=== PATIENT | male | born 1980 | race Asian ===

== ENCOUNTER 2016-09-20 12:43 | Inpatient (IN) | payer MEDICAID ==
[~2016-09-20] VITALS: Ht 175.3 cm; Wt 86.5 kg
[2016-09-20] MEDS ORDERED: CEFTRIAXONE 1 GM/50 ML (PMX) 50 ML IVPB STA (13:04)
[2016-09-20] MEDS ORDERED: AZITHROMYCIN 500MG/NS (PMX) 250 ML IV STA (13:04)
[2016-09-20] MEDS ORDERED: SODIUM CHLORIDE 0.9% 1L BAG IV* STA (13:04)
[2016-09-20] MEDS ORDERED: ALBUTEROL 0.083% (NEB) 2.5 MG/3 ML AMP NEB STA (13:17)
[2016-09-20] MEDS ORDERED: DEXAMETHASONE 10 MG/ML 1 ML INJ IV ONE (13:30)
[2016-09-20 13:48] LABS: BASOPHIL # 0.1 10^3/ul (0.0-0.1); BASOPHILS % 0.5 % (0.0-2.0); EOSINOPHILS # 0.1 10^3/ul (0.0-0.5); EOSINOPHILS % 0.5 % (0.0-7.0); HEMATOCRIT 46.6 % (42.0-52.0); HEMOGLOBIN 15.8 g/dl (14.0-18.0); LYMPHOCYTES # 1.9 10^3/ul (0.8-2.9); LYMPHOCYTES % 12.5 % (15.0-51.0); MEAN CORPUSCULAR HEMOGLOBIN 30.9 pg (29.0-33.0); MEAN CORPUSCULAR HGB CONC 33.9 g/dl (32.0-37.0); MEAN CORPUSCULAR VOLUME 91.2 fl (82.0-101.0); MEAN PLATELET VOLUME 9.1 fl (7.4-10.4); MONOCYTE # 1.2 10^3/ul (0.3-0.9); MONOCYTES % 7.8 % (0.0-11.0); NEUTROPHILS % 77.4 % (39.0-77.0); PLATELET COUNT 521 10^3/UL (140-415); RED BLOOD COUNT 5.11 10^6/ul (4.70-6.10); RED CELL DISTRIBUTION WIDTH 11.9 % (11.5-14.5); WHITE BLOOD COUNT 14.9 10^3/ul (4.8-10.8)
--- NOTE | 2016-09-20 13:52 | RADRPT ---
PROCEDURE: Chest x-ray CLINICAL INDICATION: Shortness of breath TECHNIQUE: Chest single view COMPARISON: None FINDINGS: The heart is normal in size. The pulmonary vessels are normal in caliber. There is a evolving left lower lobe pneumonia. Right lung clear. Costophrenic angles sharp. Bony thorax is unremarkable. IMPRESSION: Evolving left lower lobe pneumonia RPTAT: HH .Eleazar Shannon MD, Date Time Electronically viewed and signed by .Eleazar Shannon MD, on 09/20/2016 13:51 .W/
[2016-09-20 14:08] LABS: ALBUMIN 4.5 g/dl (3.3-4.9); BILIRUBIN,INDIRECT 0.4 mg/dl (0-1.1); BILIRUBIN,TOTAL 0.4 mg/dl (0.2-1.3); CALCIUM 10.8 mg/dl (8.4-10.2); CREATININE 0.94 mg/dl (0.61-1.24); POTASSIUM 3.9 mmol/L (3.5-5.1)
--- NOTE | 2016-09-20 14:38 | ERD ---
ER Documentation Chief Complaint Date/Time DATE: 09/20/16 TIME: 14:28 Chief Complaint Pt with fever, SOB, body aches X 13 day. HPI 36-year-old previously healthy male presenting with symptoms of body aches for 2 weeks. He initially had a fever that has since resolved. However his cough is not getting any better and he feels short of breath. He lost his voice a few days ago but this is improving. He denies any chest pain, abdominal pain, nausea, vomiting, diarrhea. No weight loss or night sweats. No history of pulmonary disease. He also complains of decreased vision in his left eye for the past 2 months. He denies any preceding trauma. He has not been seen for this yet. ROS All systems reviewed and are negative except as per history of present illness. Medications Home Meds Active Scripts Ibuprofen* (Motrin*) 600 Mg Tab, 600 MG PO Q6H Y for PAIN AND OR ELEVATED TEMP, #30 TAB Prov:GRICELDA IBRAHIM MD 09/20/16 Azithromycin* (Zithromax*) 250 Mg Tablet, 250 MG PO DAILY for 4 Days, TAB start 09/21/16 Prov:GRICELDA IBRAHIM MD 09/20/16 PMhx/Soc History of Surgery: No Anesthesia Reaction: No Hx Neurological Disorder: No Hx Respiratory Disorders: No Hx Cardiac Disorders: No Hx Psychiatric Problems: No Hx Miscellaneous Medical Probl: No Hx Alcohol Use: Yes (Rare) Hx Substance Use: No Hx Tobacco Use: No Smoking Status: Never smoker FmHx Family History: other (High blood pressure- parents) Physical Exam Vitals Vital Signs Date Time Temp Pulse Resp B/P Pulse Ox O2 Delivery O2 Flow Rate FiO2 09/20/16 13:57 112 22 92 21 09/20/16 13:41 0 09/20/16 12:48 98.6 128 18 214/104 90 Physical Exam Const: Nontoxic, well-appearing, no distress Head: Atraumatic Eyes: Normal Conjunctiva, PERRLA, EOMI. No proptosis. Right eye funduscopic exam limited but grossly normal. Left eye funduscopic exam limited but unable to visualize retina. There is a greenish discoloration and security when I try to do the exam. No photophobia. Only light perception and shadows seen with left eye. OD 20/50, OU 20/50. IOP OS 33, OD 24 ENT: Normal External Ears, Nose and Mouth. Posterior oropharynx normal. Hoarse voice. No drooling. No stridor. Neck: Full range of motion..~ No meningismus. No cervical lymphadenopathy Resp: Clear to auscultation bilaterally with transmitted upper airway sounds , no rales or rhonchi Cardio: Tachycardic with regular rhythm, no murmurs. 2+ distal pulses Abd: Soft, non tender, non distended. No hepatosplenomegaly. Normal bowel sounds Skin: No petechiae or rashes Back: No midline or flank tenderness Ext: No cyanosis, or edema Neur: Awake and alert and oriented 3, cranial nerves intact, strength and sensations intact in all 4 extremities Psych: Normal Mood and Affect Result Diagram: 09/20/16 1315 09/20/16 1315 Results 24 hrs Laboratory Tests Test 09/20/16 13:15 White Blood Count 14.910^3/ul Red Blood Count 5.1110^6/ul Hemoglobin 15.8g/dl Hematocrit 46.6% Mean Corpuscular Volume 91.2fl Mean Corpuscular Hemoglobin 30.9pg Mean Corpuscular Hemoglobin Concent 33.9g/dl Red Cell Distribution Width 11.9% Platelet Count 97769^3/UL Mean Platelet Volume 9.1fl Neutrophils % 77.4% Lymphocytes % 12.5% Monocytes % 7.8% Eosinophils % 0.5% Basophils % 0.5% Nucleated Red Blood Cells % 0.0/100WBC Neutrophils # (Manual) 11.510^3/ul Lymphocytes # 1.910^3/ul Monocytes # 1.210^3/ul Eosinophils # 0.110^3/ul Basophils # 0.110^3/ul Nucleated Red Blood Cells # 0.010^3/ul Sodium Level 141mmol/L Potassium Level 3.9mmol/L Chloride Level 96mmol/L Carbon Dioxide Level 27mmol/L Anion Gap 22 Blood Urea Nitrogen 10mg/dl Creatinine 0.94mg/dl Glucose Level 123mg/dl Calcium Level 10.8mg/dl Total Bilirubin 0.4mg/dl Direct Bilirubin 0.00mg/dl Indirect Bilirubin 0.4mg/dl Aspartate Amino Transf (AST/SGOT) 63IU/L Alanine Aminotransferase (ALT/SGPT) 125IU/L Alkaline Phosphatase 123IU/L Total Protein 9.0g/dl Albumin 4.5g/dl Globulin 4.50g/dl Albumin/Globulin Ratio 1.00 Current Medications Medications (Trade) Dose Ordered Sig/Laura Route PRN Reason Start Time Stop Time Status Last Admin Dose Admin Sodium Chloride 2680 ml 2,680 ml BOLUS OVER 2 HOURS STAT IV* 09/20/16 13:04 09/20/16 13:05 DC 09/20/16 13:49 Ceftriaxone Sodium 50 ml @ 100 mls/hr ONCE STAT IVPB 09/20/16 13:04 09/20/16 13:17 DC Azithromycin (Zithromax 500mg/ NS (Pmx)) 250 ml @ 250 mls/hr ONCE STAT IV 09/20/16 13:04 09/20/16 14:03 DC 09/20/16 13:04 Albuterol (Proventil 0.083% (Neb)) 5 mg ONCE STAT NEB 09/20/16 13:17 09/20/16 13:18 DC 09/20/16 13:52 Dexamethasone (Decadron) 10 mg ONCE ONCE IV 09/20/16 13:30 09/20/16 13:31 DC 09/20/16 14:03 Tetracaine HCl (Tetracaine 0.5% Steri-Unit Saranya) 1 drop ONCE ONCE LEFT EYE 09/20/16 15:00 09/20/16 15:01 09/20/16 14:39 Procedures/MDM Labs CBC: Leukocytosis, thrombocytosis CMP: No evidence of electrolyte abnormality, renal failure, hypoglycemia. mild transaminitis Chest x-ray: Left lower lobe pneumonia [facility] Patient is presenting with flulike symptoms. His blood pressure was noted to be very high when he came in, but this improved without intervention. Repeat blood pressure was 168/117. I have a low suspicion for hypertensive emergency. His workup is consistent with community-acquired pneumonia. IV fluids, IV antibiotics were started. Patient was given a breathing treatment without any significant improvement in his symptoms. His vitals were notable for mild hypoxia on room air to the low 90s, however the patient seems comfortable on exam. I think the patient is appropriate for outpatient treatment of his pneumonia with azithromycin. 1 dose was given here. I have a lower suspicion for acute coronary syndrome, heart failure, or pulmonary embolism. With regard to his transaminitis, there does not seem to be any evidence of acute cholecystitis, acute hepatitis, or biliary obstruction. I discussed these findings with the patient and recommended follow-up for this as well as his hypertension. With regard to his left eye partial vision loss, I suspect the patient likely had a vitreous hemorrhage versus retinal detachment. However this is not an emergency as this is been going on for 2 months. I have a lower suspicion for glaucoma. I told the patient he absolutely does need to see ophthalmology and recommended he go to [facility]. Patient understands the discharge plan. He will be discharged after his IV fluids and IV antibiotics are done. Patient signed out to the oncoming ED physician. Departure Diagnosis: Primary Impression: Community acquired pneumonia Additional Impressions: Transaminitis Blurry vision, left eye Condition: Fair GRICELDA IBRAHIM MD Sep 20, 2016 14:38
[2016-09-20] MEDS ORDERED: AZIT250T94 PO (14:48)
[2016-09-20] MEDS ORDERED: IBUP-1542 PO (14:48)
[2016-09-20] MEDS ORDERED: TETRACAINE 0.5% 4 ML OPH LEFT EYE ONE (15:00)
[2016-09-20 15:54] VITALS: TEMP 100.3
[2016-09-20] MEDS ORDERED: LEVALBUTEROL (NEB) 1.25 MG/0.5 ML AMP HHN ONE ×2 (16:30→23:30)
[2016-09-20] MEDS ORDERED: FOLI1TAB5 PO (18:58)
[2016-09-20] MEDS ORDERED: ASCO-163 PO (19:01)
[2016-09-20] MEDS ORDERED: ACETAMINOPHEN 325 MG TAB PO PRN (21:30)
[2016-09-20] MEDS ORDERED: ONDANSETRON 4 MG INJ IV PRN ×2 (21:30→23:30)
[2016-09-20] MEDS ORDERED: ASCO1TAB22 PO (22:18)
[2016-09-20 22:30] VITALS: BP 171/113; PULSE 109; RESP 20
[2016-09-20 23:00] VITALS: Ht 175.3 cm; Wt 86.5 kg
[2016-09-20] MEDS ORDERED: LEVOFLOXACIN 500MG/D5W (PMX) 100 ML IVPB ONE (23:30)
[2016-09-20] MEDS ORDERED: IPRATROPIUM (NEB) 0.5 MG/2.5 ML AMP HHN ONE (23:30)
--- NOTE | 2016-09-20 23:50 | HP ---
Date/Time of Note Date/Time of Note DATE: 09/20/16 TIME: 23:50 Assessment/Plan VTE Prophylaxis VTE Prophylaxis Intervention: heparin Assessment/Plan Assessment/Plan 1. Sepsis, as evidenced by leukocytosis and tachycardia, secondary to pneumonia -Antibiotic, IV fluid -Follow-up culture results including respiratory culture if possible -ID consult as needed 2. Left lower lobe community-acquired pneumonia -See #1 3. Hypertensive urgency: Blood pressure better controlled now -will treat his shortness of breath and cough for now. If no improvement, will start with as needed antihypertensive 4. Elevated transaminases -Patient reports that he only drinks alcohol occasionally. -will check right upper quadrant ultrasound to evaluate for possible fatty liver -will also check hep panel HPI/ROS Admit Date/Time Admit Date/Time Sep 20, 2016 at 21:15 Hx of Present Illness This is a 36-year-old male with no significant past medical history who presented to emergency department complaining of shortness of breath, cough and fever of 2 weeks duration. He also reported generalized body aches. When he presented to the ER, blood pressure was 214/104, heart rate 128, temp 100.3 and oxygen saturation 90%. Chest x-ray showed evolving left lower lobe pneumonia. Labs show a WBC of almost 15,000, AST 65, ALT 125 and a slightly elevated alk phos of 125. Patient reports that he only drinks occasionally. . PMH/Family/Social Past Medical History Medical History: no pertinent history Social History Alcohol Use: occasionally Smoking Status: Never smoker Drug Use: none Exam/Review of Systems Vital Signs Vitals Vital Signs Date Time Temp Pulse Resp B/P Pulse Ox O2 Delivery O2 Flow Rate FiO2 09/20/16 21:48 111 22 169/107 96 Nasal Cannula 3.0 09/20/16 15:54 100.3 09/20/16 13:57 21 Exam Constitutional: other (Looks slightly uncomfortable due to cough.) Head: atraumatic, normocephalic Eyes: EOMI, PERRL Respiratory: diminished breath sounds Cardiovascular: other (Tachycardic with regular rate) Gastrointestinal: non-tender, soft Extremities: normal pulses Labs Result Diagram: 09/20/16 1315 09/20/16 1315 Medications Medications Current Medications Levofloxacin/ Dextrose 100 ml @ 100 mls/hr ONCE ONCE IVPB ; Start 09/20/16 at 23:30; Stop 09/21/16 at 00:29 Levofloxacin/ Dextrose (Levaquin 500mg/ D5W 100 ml (Pmx)) 100 ml @ 100 mls/hr Q24H IVPB ; Start 09/21/16 at 22:00 Acetaminophen (Tylenol Tab) 650 mg Q6H PRN PO PAIN AND OR ELEVATED TEMP; Start 09/20/16 at 23:30 Ondansetron HCl (Zofran Inj) 4 mg Q6H PRN IV NAUSEA AND/OR VOMITING; Start at 23:30 Morphine Sulfate (morphine) 2 mg Q4H PRN IV PAIN; Start 09/21/16 at 00:00 SABRINA MORALES MD Sep 20, 2016 23:50
[2016-09-20] MEDS: morphine 2 MG INJ IV PRN (23:56)
[2016-09-21] VITALS (9 sets, daily range): BP systolic 134–167; BP diastolic 83–101; PULSE 86–107; RESP 16–20
[2016-09-21] MEDS ORDERED: LEVALBUTEROL (NEB) 1.25 MG/0.5 ML AMP HHN SCH (02:00)
[2016-09-21] MEDS: ACETAMINOPHEN 325 MG TAB PO PRN ×2 (06:55→12:42)
[2016-09-21] MEDS: morphine 2 MG INJ IV PRN (08:10)
[2016-09-21] MEDS ORDERED: METOCLOPRAMIDE 10 MG INJ IM ONE (12:30)
[2016-09-21] MEDS ORDERED: METOCLOPRAMIDE 10 MG INJ IV ONE (13:00)
[2016-09-21] MEDS ORDERED: oxyCODONE 5 MG TAB PO PRN (13:30)
--- NOTE | 2016-09-21 18:06 | PN ---
Date/Time of Note Date/Time of Note DATE: 09/21/16 TIME: 18:04 Assessment/Plan VTE Prophylaxis VTE Prophylaxis Intervention: ambulation Lines/Catheters IV [facility]ter [facility] (from [facility]): Saline Lock Urinary Cath still in place: No Assessment/Plan Chief Complaint/Hosp Course Patient is a 36-year-old Amharic male with no significant past medical history who presents to [facility] for shortness of breath and cough found to have left lower lobe pneumonia. Assessment and problem list Sepsis Left lower lobe pneumonia, community-acquired Hypertensive urgency, resolving Elevated transaminases Body aches Leukocytosis Electrolyte derangement Plan -Continue IV Levaquin for now, blood cultures ordered, will de-escalate to oral Levaquin once patient's symptoms have shown to be resolving -As needed nausea medication, will change morphine to oxycodone given side effect of likely nausea. Will hold off on Tylenol for now given unknown elevated AST and ALT -Breathing treatments as needed -Continue supportive care -Continue blood pressure medication as needed -We will DC and patient is not septic for 24-48 hours and tolerating oral medications. Problems: Subjective 24 Hr Interval Summary Free Text/Dictation states feels better, however still has cough. Exam/Review of Systems Vital Signs Vitals Vital Signs Date Time Temp Pulse Resp B/P Pulse Ox O2 Delivery O2 Flow Rate FiO2 09/21/16 14:34 98.1 16 139/93 92 09/21/16 07:35 90 09/21/16 03:14 21 09/21/16 00:00 Room Air 09/20/16 21:48 3.0 Intake and Output 09/20/16 09/20/16 09/21/16 15:00 23:00 07:00 Intake Total 900 ml Balance 900 ml Exam Physical exam General: Patient is laying in bed and answers questions appropriately Mentation: Patient is alert and oriented 4, Head: Normocephalic atraumatic Eyes: EOMI, pupils reactive to light Neck: Supple, nontender, midline Respiratory: diminished breath sounds lower lobes. Cardiovascular: regular rate, no obvious murmurs Gastrointestinal: non-tender to palpation, bowel sounds heard. Neurological: Moves all extremities spontaneously Skin: No new skin lesions Results Result Diagram: 09/20/16 1315 09/20/16 1315 Medications Medications Current Medications Levofloxacin/ Dextrose (Levaquin 500mg/ D5W 100 ml (Pmx)) 100 ml @ 100 mls/hr Q24H IVPB ; Start 09/21/16 at 22:00 Acetaminophen (Tylenol Tab) 650 mg Q6H PRN PO PAIN AND OR ELEVATED TEMP Last administered on 09/21/16 12:42; Admin Dose 650 MG; Start 09/20/16 at 23:30 Ondansetron HCl (Zofran Inj) 4 mg Q6H PRN IV NAUSEA AND/OR VOMITING Last administered on 09/21/16 08:14; Admin Dose 4 MG; Start 09/20/16 at 23:30 Oxycodone HCl (Roxicodone) 5 mg Q4H PRN PO PAIN; Start 09/21/16 at 13:30 NIHARIKA BURGOS Sep 21, 2016 18:05
[2016-09-21] MEDS ORDERED: GUAIFENESIN/CODEINE 5ML CUP PO PRN (18:30)
[2016-09-21] MEDS ORDERED: LEVOFLOXACIN 500MG/D5W (PMX) 100 ML IVPB SCH (22:00)
[2016-09-21] MEDS: IPRATROPIUM (NEB) 0.5 MG/2.5 ML AMP HHN PRN (22:47)
[2016-09-21] MEDS: LEVALBUTEROL (NEB) 1.25 MG/0.5 ML AMP HHN PRN (22:47)
[2016-09-22 02:14] VITALS: BP 136/91; RESP 18
[2016-09-22 06:08] LABS: BASOPHIL # 0.1 10^3/ul (0.0-0.1); BASOPHILS % 0.6 % (0.0-2.0); EOSINOPHILS # 0.1 10^3/ul (0.0-0.5); EOSINOPHILS % 0.9 % (0.0-7.0); HEMATOCRIT 43.2 % (42.0-52.0); LYMPHOCYTES # 2.1 10^3/ul (0.8-2.9); LYMPHOCYTES % 26.2 % (15.0-51.0); MEAN CORPUSCULAR HEMOGLOBIN 30.4 pg (29.0-33.0); MEAN CORPUSCULAR HGB CONC 32.4 g/dl (32.0-37.0); MEAN CORPUSCULAR VOLUME 93.7 fl (82.0-101.0); MEAN PLATELET VOLUME 9.2 fl (7.4-10.4); MONOCYTE # 0.6 10^3/ul (0.3-0.9); MONOCYTES % 8.2 % (0.0-11.0); NEUTROPHILS % 60.1 % (39.0-77.0); PLATELET COUNT 476 10^3/UL (140-415); RED BLOOD COUNT 4.61 10^6/ul (4.70-6.10); RED CELL DISTRIBUTION WIDTH 12.5 % (11.5-14.5); WHITE BLOOD COUNT 7.8 10^3/ul (4.8-10.8)
[2016-09-22 06:32] LABS: ALBUMIN 3.7 g/dl (3.3-4.9); ALBUMIN/GLOBULIN RATIO 1.15; BILIRUBIN,INDIRECT 0.2 mg/dl (0-1.1); BILIRUBIN,TOTAL 0.2 mg/dl (0.2-1.3); CALCIUM 9.1 mg/dl (8.4-10.2); CREATININE 0.94 mg/dl (0.61-1.24); POTASSIUM 4.2 mmol/L (3.5-5.1); TOTAL PROTEIN 6.9 g/dl (6.1-8.1)
[2016-09-22 08:00] VITALS: BP 154/102; RESP 19
[2016-09-22] MEDS: AMLODIPINE 5 MG TAB PO SCH (12:18)
[2016-09-22] MEDS: SOD CHLORIDE 0.9% 1,000 ML IV SCH ×2 (12:19→20:00)
[2016-09-22 14:00] VITALS: BP 129/92; RESP 21
--- NOTE | 2016-09-22 16:13 | PN ---
Date/Time of Note Date/Time of Note DATE: 09/22/16 TIME: 16:08 Assessment/Plan VTE Prophylaxis VTE Prophylaxis Intervention: ambulation Lines/Catheters IV Catheter Type (from [facility]): Saline Lock Urinary Cath still in place: No Assessment/Plan Chief Complaint/Hosp Course Patient is a 36-year-old Bulgarian male with no significant past medical history who presents to [facility] for shortness of breath and cough found to have left lower lobe pneumonia. Assessment and problem list Sepsis Left lower lobe pneumonia, community-acquired Hypertensive urgency, resolving Elevated transaminases Body aches Leukocytosis Electrolyte derangement Plan -will transition to oral levaquin, white count down -patient still feeling poor with sob on ambulation. Will attempt short steroid taper -As needed nausea medication, oxycodone for pain -ast/alt still elevated, questionable fatty liver, us pending, lipids for tmrw. -Breathing treatments as needed -Continue supportive care -Continue blood pressure medication as needed -We will DC and patient is not septic for 24-48 hours and tolerating oral medications. Problems: Subjective 24 Hr Interval Summary Free Text/Dictation still weak, states gets short of breath when walking to bathroom Exam/Review of Systems Vital Signs Vitals Vital Signs Date Time Temp Pulse Resp B/P Pulse Ox O2 Delivery O2 Flow Rate FiO2 09/22/16 08:00 97.8 104 19 154/102 90 09/21/16 22:48 21 09/21/16 00:00 Room Air 09/20/16 21:48 3.0 Intake and Output 09/21/16 09/21/16 09/22/16 15:00 23:00 07:00 Intake Total 720 ml 600 ml Balance 720 ml 600 ml Exam Physical exam General: Patient is laying in bed and answers questions appropriately Mentation: Patient is alert and oriented 4, Head: Normocephalic atraumatic Eyes: EOMI, pupils reactive to light Neck: Supple, nontender, midline Respiratory: diminished breath sounds lower lobes. Cardiovascular: regular rate, no obvious murmurs Gastrointestinal: non-tender to palpation, bowel sounds heard. Neurological: Moves all extremities spontaneously Skin: No new skin lesions Results Result Diagram: 09/22/16 0447 09/22/16 0447 Results 24 hrs Laboratory Tests Test 09/22/16 04:47 White Blood Count 7.8 # Red Blood Count 4.61 L Hemoglobin 14.0 Hematocrit 43.2 Mean Corpuscular Volume 93.7 Mean Corpuscular Hemoglobin 30.4 Mean Corpuscular Hemoglobin Concent 32.4 Red Cell Distribution Width 12.5 Platelet Count 476 H Mean Platelet Volume 9.2 Neutrophils % 60.1 Lymphocytes % 26.2 Monocytes % 8.2 Eosinophils % 0.9 Basophils % 0.6 Nucleated Red Blood Cells % 0.0 Neutrophils # (Manual) 4.7 Lymphocytes # 2.1 Monocytes # 0.6 Eosinophils # 0.1 Basophils # 0.1 Nucleated Red Blood Cells # 0.0 Sodium Level 139 Potassium Level 4.2 Chloride Level 100 Carbon Dioxide Level 31 Anion Gap 12 # Blood Urea Nitrogen 15 Creatinine 0.94 Glucose Level 109 Calcium Level 9.1 Total Bilirubin 0.2 Direct Bilirubin 0.00 Indirect Bilirubin 0.2 Aspartate Amino Transf (AST/SGOT) 57 H Alanine Aminotransferase (ALT/SGPT) 111 H Alkaline Phosphatase 83 Total Protein 6.9 # Albumin 3.7 Globulin 3.20 Albumin/Globulin Ratio 1.15 Medications Medications Current Medications Levofloxacin/ Dextrose (Levaquin 500mg/ D5W 100 ml (Pmx)) 100 ml @ 100 mls/hr Q24H IVPB Last administered on 09/21/16 21:24; Admin Dose 100 MLS/HR; Start at 22:00 Acetaminophen (Tylenol Tab) 650 mg Q6H PRN PO PAIN AND OR ELEVATED TEMP Last administered on 09/21/16 12:42; Admin Dose 650 MG; Start 09/20/16 at 23:30 Ondansetron HCl (Zofran Inj) 4 mg Q6H PRN IV NAUSEA AND/OR VOMITING Last administered on 09/21/16 08:14; Admin Dose 4 MG; Start 09/20/16 at 23:30 Oxycodone HCl (Roxicodone) 5 mg Q4H PRN PO PAIN; Start 09/21/16 at 13:30 Guaifenesin/ Codeine Phosphate 5 ml 5 ml Q12 PRN PO cough; Start 09/21/16 at 18 :30 Sodium Chloride (NS) 1,000 ml @ 125 mls/hr Q8H IV Last administered on 12:19; Admin Dose 125 MLS/HR; Start 09/22/16 at 12:00 Clonidine (Catapres) 0.1 mg Q6H PRN PO SBP>170; Start 09/22/16 at 12:00 Amlodipine Besylate (Norvasc) 5 mg DAILY PO Last administered on 09/22/16t 12: 18; Admin Dose 5 MG; Start 09/22/16 at 12:00 NIHARIKA BURGOS Sep 22, 2016 16:13
[2016-09-22] MEDS ORDERED: LEVOFLOXACIN 750 MG TABLET PO ONE (20:00)
[2016-09-22] MEDS: ACETAMINOPHEN 325 MG TAB PO PRN (20:09)
[2016-09-22 20:16] VITALS: BP 155/105; RESP 18
[2016-09-23 02:16] VITALS: BP 123/66; RESP 18
[2016-09-23] MEDS: SOD CHLORIDE 0.9% 1,000 ML IV SCH (04:00)
[2016-09-23] MEDS: LEVOFLOXACIN 750 MG TABLET PO SCH (06:47)
[2016-09-23 07:01] LABS: BASOPHIL # 0.1 10^3/ul (0.0-0.1); BASOPHILS % 0.8 % (0.0-2.0); EOSINOPHILS # 0.2 10^3/ul (0.0-0.5); EOSINOPHILS % 1.8 % (0.0-7.0); HEMATOCRIT 46.9 % (42.0-52.0); HEMOGLOBIN 15.3 g/dl (14.0-18.0); LYMPHOCYTES # 2.3 10^3/ul (0.8-2.9); MEAN CORPUSCULAR HEMOGLOBIN 30.2 pg (29.0-33.0); MEAN CORPUSCULAR HGB CONC 32.6 g/dl (32.0-37.0); MEAN CORPUSCULAR VOLUME 92.7 fl (82.0-101.0); MEAN PLATELET VOLUME 8.8 fl (7.4-10.4); MONOCYTE # 0.7 10^3/ul (0.3-0.9); MONOCYTES % 8.4 % (0.0-11.0); NEUTROPHILS % 57.9 % (39.0-77.0); PLATELET COUNT 530 10^3/UL (140-415); RED BLOOD COUNT 5.06 10^6/ul (4.70-6.10); RED CELL DISTRIBUTION WIDTH 12.1 % (11.5-14.5); WHITE BLOOD COUNT 8.5 10^3/ul (4.8-10.8)
[2016-09-23 07:31] LABS: ALBUMIN 3.6 g/dl (3.3-4.9); BILIRUBIN,INDIRECT 0.2 mg/dl (0-1.1); BILIRUBIN,TOTAL 0.2 mg/dl (0.2-1.3); CALCIUM 9.1 mg/dl (8.4-10.2); CHOL/HDL RATIO 6.5 RATIO; CREATININE 0.91 mg/dl (0.61-1.24); MAGNESIUM 2.5 mg/dl (1.7-2.5); PHOSPHORUS 4.3 mg/dl (2.5-4.9); POTASSIUM 4.2 mmol/L (3.5-5.1); TOTAL PROTEIN 6.9 g/dl (6.1-8.1)
[2016-09-23 08:00] VITALS: BP 168/86; RESP 18
[2016-09-23] MEDS: predniSONE 20 MG TAB PO SCH ×2 (08:13→09:00)
[2016-09-23] MEDS: AMLODIPINE 5 MG TAB PO SCH (08:14)
[2016-09-23] MEDS: IPRATROPIUM (NEB) 0.5 MG/2.5 ML AMP HHN PRN (08:24)
[2016-09-23] MEDS: LEVALBUTEROL (NEB) 1.25 MG/0.5 ML AMP HHN PRN (08:25)
--- NOTE | 2016-09-23 10:00 | RADRPT ---
PROCEDURE: Right upper quadrant abdominal ultrasound. CLINICAL INDICATION: Abdominal pain, abnormal liver function tests TECHNIQUE: De Leon scale and color doppler ultrasound images of the right upper quadrant of the abdom en. COMPARISON: None FINDINGS: Pancreas: Visualized portions appear of normal echogenicity without focal lesions. Liver: Morphology:Normal in size. Contour:Normal, no evidence of nodularity. Echogenicity: Increased Focal lesions:None. Main portal vein: Patent with hepatopetal flow. Biliary System: Gallbladder wall: Normal thickness. Gallstones: 1.6 cm gallstone within the neck of the gallbladder. Intrahepatic bile ducts: Normal caliber. Common bile duct diameter (mm): 4.3 Kidneys: Right length (cm) : 11.4 Right cortical thickness: Normal. Echogenicity: Normal. Hydronephrosis: None. Renal calculi: None. Focal lesions: None. Free fluid/ascites: None. Abdominal aorta: Normal caliber of the visualized segments. Other findings: None. IMPRESSION: Increased echogenicity of the liver parenchyma suggestive of hepatic steatosis. Cholelithiasis without evidence of abnormal gallbladder wall thickening to suggest cholecystitis. Normal caliber of the intrahepatic and extrahepatic biliary system. RPTAT: AADD .Jonathan Pretty MD, MD Date Time Electronically viewed and signed by .Jonathan Pretty MD, on 09/22/2016 23:48 .B/
[2016-09-23 14:00] VITALS: BP 128/62; RESP 20
--- NOTE | 2016-09-23 14:01 | PDOCDIS ---
Discharge Instructions CONDITION Patient Condition: Stable HOME CARE INSTRUCTIONS: Special Diet: Regular FOLLOW UP/APPOINTMENTS Follow-up Plan 1. Please take all medication as directed 2. Please follow up with a primary care provider as soon as possible. NIHARIKA BURGOS Sep 23, 2016 14:01
[2016-09-23] MEDS ORDERED: LEVO750T25 PO (14:09)
[2016-09-23] MEDS ORDERED: PRED10TA PO (14:09)
[2016-09-23] MEDS ORDERED: AMLO-145 PO (14:09)
--- NOTE | 2016-09-23 15:11 | PN ---
Date/Time of Note Date/Time of Note DATE: 09/23/16 TIME: 15:09 Assessment/Plan VTE Prophylaxis VTE Prophylaxis Intervention: ambulation Lines/Catheters IV [facility] Saline Lock Urinary Cath still in place: No Assessment/Plan Chief Complaint/Hosp Course Patient is a 36-year-old Welsh male with no significant past medical history who presents to [facility] for shortness of breath and cough found to have left lower lobe pneumonia. Assessment and problem list Sepsis Left lower lobe pneumonia, community-acquired Hypertensive urgency, resolving Elevated transaminases Body aches Leukocytosis Electrolyte derangement Plan -oral levaquin, white count down -patient still feeling poor with sob on ambulation. steroids ordered, patient feels improvement. -As needed nausea medication, oxycodone for pain -ast/alt still elevated, but decreased. gallbladder US shows signs of fatty liver. -Breathing treatments as needed -Continue supportive care -Continue blood pressure medication as needed -patient sob today, will monitor overnight one more night. -We will DC and patient is not septic for 24-48 hours and tolerating oral medications. Problems: Subjective 24 Hr Interval Summary Free Text/Dictation episode of shortness of breath in the AM, did well after steroids and breathing treatment Exam/Review of Systems Vital Signs Vitals Vital Signs Date Time Temp Pulse Resp B/P Pulse Ox O2 Delivery O2 Flow Rate FiO2 09/23/16 08:25 89 20 94 21 09/23/16 08:00 98.6 168/86 09/21/16 00:00 Room Air 09/20/16 21:48 3.0 Intake and Output 09/22/16 09/22/16 09/23/16 15:00 23:00 07:00 Intake Total 1520.0 ml 1400 ml Output Total 250 ml Balance 1520.0 ml 1150 ml Exam Physical exam General: Patient is laying in bed and answers questions appropriately Mentation: Patient is alert and oriented 4, Head: Normocephalic atraumatic Eyes: EOMI, pupils reactive to light Neck: Supple, nontender, midline Respiratory: diminished breath sounds lower lobes. Cardiovascular: regular rate, no obvious murmurs Gastrointestinal: non-tender to palpation, bowel sounds heard. Neurological: Moves all extremities spontaneously Skin: No new skin lesions Results Result Diagram: 09/23/16 0534 09/23/16 0534 Results 24 hrs Laboratory Tests Test 09/23/16 05:34 White Blood Count 8.5 Red Blood Count 5.06 Hemoglobin 15.3 Hematocrit 46.9 Mean Corpuscular Volume 92.7 Mean Corpuscular Hemoglobin 30.2 Mean Corpuscular Hemoglobin Concent 32.6 Red Cell Distribution Width 12.1 Platelet Count 530 H Mean Platelet Volume 8.8 Neutrophils % 57.9 Lymphocytes % 27.0 Monocytes % 8.4 Eosinophils % 1.8 Basophils % 0.8 Nucleated Red Blood Cells % 0.0 Neutrophils # (Manual) 4.9 Lymphocytes # 2.3 Monocytes # 0.7 Eosinophils # 0.2 Basophils # 0.1 Nucleated Red Blood Cells # 0.0 Sodium Level 140 Potassium Level 4.2 Chloride Level 99 Carbon Dioxide Level 27 Anion Gap 18 H Blood Urea Nitrogen 16 Creatinine 0.91 Glucose Level 105 Calcium Level 9.1 Phosphorus Level 4.3 Magnesium Level 2.5 Total Bilirubin 0.2 Direct Bilirubin 0.00 Indirect Bilirubin 0.2 Aspartate Amino Transf (AST/SGOT) 42 Alanine Aminotransferase (ALT/SGPT) 96 H Alkaline Phosphatase 90 Total Protein 6.9 Albumin 3.6 Triglycerides Level 220 H Cholesterol Level 138 LDL Cholesterol, Calculated 73 HDL Cholesterol 21 L Cholesterol/HDL Ratio 6.5 Medications Medications Current Medications Acetaminophen (Tylenol Tab) 650 mg Q6H PRN PO PAIN AND OR ELEVATED TEMP Last administered on 09/22/16 20:09; Admin Dose 650 MG; Start 09/20/16 at 23:30 Ondansetron HCl (Zofran Inj) 4 mg Q6H PRN IV NAUSEA AND/OR VOMITING Last administered on 09/21/16 08:14; Admin Dose 4 MG; Start 09/20/16 at 23:30 Oxycodone HCl (Roxicodone) 5 mg Q4H PRN PO PAIN; Start 09/21/16 at 13:30 Guaifenesin/ Codeine Phosphate (Robitussin Ac Liquid Cup) 5 ml Q12 PRN PO cough ; Start 09/21/16 at 18:30 Clonidine (Catapres) 0.1 mg Q6H PRN PO SBP>170; Start 09/22/16 at 12:00 Amlodipine Besylate (Norvasc) 5 mg DAILY PO Last administered on 09/23/16 08: 14; Admin Dose 5 MG; Start 09/22/16 at 12:00 Levofloxacin (Levaquin) 750 mg DAILY@06 PO Last administered on 09/23/16 06:47 ; Admin Dose 750 MG; Start 09/23/16 at 06:00 Prednisone (Prednisone) 40 mg DAILY PO Last administered on 09/23/16 08:13; Admin Dose 40 MG; Start 09/23/16 at 08:00 NIHARIKA BURGOS Sep 23, 2016 15:11
[2016-09-23] MEDS ORDERED: ALBUTEROL/IPRATROPIUM (NEB) 3 ML AMP HHN PRN (15:30)
[2016-09-23] MEDS ORDERED: METHYLPREDNISOLONE 40 MG INJ IV ONE (16:00)
[2016-09-23] MEDS: ALBUTEROL/IPRATROPIUM (NEB) 3 ML AMP HHN SCH (16:16)
[2016-09-23] MEDS ORDERED: predniSONE 20 MG TAB PO SCH (20:00)
[2016-09-23] MEDS ORDERED: LEVOFLOXACIN 750 MG TABLET PO SCH (20:00)
[2016-09-23 22:55] VITALS: BP 134/87; RESP 20
[2016-09-24 00:20] VITALS: PULSE 92
[2016-09-24 04:49] VITALS: BP 131/89; RESP 18
[2016-09-24] MEDS: LEVOFLOXACIN 750 MG TABLET PO SCH (05:23)
[2016-09-24 08:00] VITALS: BP_SYST 149; RESP 20
[2016-09-24] MEDS: predniSONE 20 MG TAB PO SCH (08:33)
[2016-09-24] MEDS: AMLODIPINE 5 MG TAB PO SCH (08:33)
[2016-09-24] MEDS: ALBUTEROL/IPRATROPIUM (NEB) 3 ML AMP HHN SCH (08:52)
--- NOTE | 2016-09-24 17:19 | DS ---
Date/Time of Note Date/Time of Note DATE: 09/24/16 TIME: 17:17 Discharge Summary Admission/Discharge Info Admit Date/Time Sep 20, 2016 at 21:15 Discharge Date/Time Sep 24, 2016 at 14:00 Patient Condition: Stable Hx of Present Illness This is a 36-year-old male with no significant past medical history who presented to emergency department complaining of shortness of breath, cough and fever of 2 weeks duration. He also reported generalized body aches. When he presented to the ER, blood pressure was 214/104, heart rate 128, temp 100.3 and oxygen saturation 90%. Chest x-ray showed evolving left lower lobe pneumonia. Labs show a WBC of almost 15,000, AST 65, ALT 125 and a slightly elevated alk phos of 125. Patient reports that he only drinks occasionally. . Hospital Course Patient is a 36-year-old [place] male with no significant past medical history who presents to [facility] for shortness of breath and cough found to have left lower lobe pneumonia. discharge diagnosis Sepsis, resolved Left lower lobe pneumonia, community-acquired shortness of breath, resolved. Hypertensive urgency, resolving Elevated transaminases Body aches Leukocytosis Electrolyte derangement Patient is a 36-year-old [place] male with no significant past medical history presented to [facility] for shortness of breath and cough found to have left lower lobe pneumonia. Patient was admitted into the medicine service and taking care of in the hospital while getting IV antibiotics. Patient was eventually transitioned over to oral antibiotics, however patient still has shortness of breath and patient was started on a short tapered dose of steroids. Patient also had elevated transaminases however mild, ultrasound gallbladder found fatty liver, it was suggested to the patient that he follow up as soon as possible with his primary care provider as he is now Medicaid pending and will likely get [employer] soon. Patient will be discharged with vitals within normal limits and with antibiotics, steroid taper , and medication for new onset hypertension. Home Meds Active Scripts Prednisone* (Prednisone*) 10 Mg Tab, 10 MG PO DAILY, #6 TAB Prov:NIHARIKA BURGOS 09/23/16 Amlodipine Besylate* (Amlodipine Besylate*) 5 Mg Tablet, 5 MG PO DAILY for 30 Days, #30 TAB 2 Refills Prov:NIHARIKA BURGOS 09/23/16 Levofloxacin* (Levaquin*) 750 Mg Tablet, 750 MG PO DAILY@06 for 5 Days, #5 TAB Prov:NIHARIKA BURGOS 09/23/16 Discontinued Reported Medications Ascorbate Calcium/Bioflavonoid (MUSTAPHA-C 1,000 MG TABLET) 1 Each Tablet, 1 EACH PO DAILY, TAB 09/20/16 Ascorbic Acid (Vitamin C With Madeleine Hips) 1,000 Mg Tablet, 1000 MG PO DAILY, TAB 09/20/16 Folic Acid/Multivits-Min/Lut (Centrum Silver Chewable Tablet) 1 Each Tab.chew, 1 EACH PO DAILY, TAB.CHEW 09/20/16 Discontinued Scripts Ibuprofen* (Motrin*) 600 Mg Tab, 600 MG PO Q6H Y for PAIN AND OR ELEVATED TEMP, #30 TAB Prov:GRICELDA IBRAHIM MD 09/20/16 Azithromycin* (Zithromax*) 250 Mg Tablet, 250 MG PO DAILY for 4 Days, TAB start 09/21/16 Prov:GRICELDA IBRAHIM MD 09/20/16 Primary Care Provider Care Physician No Primary Time spent on discharge: > 30 minutes NIHARIKA BURGOS Sep 24, 2016 17:18
== END 2016-09-24 14:00 | disposition home or self-care (01) | DRG 871 ==
LOC: E/R 12:43 → PP2 21:15
PROVIDERS: ADMIT Internal Medicine; ATTEND Internal Medicine
DX: A41.9 Sepsis, unspecified organism (principal); J18.9 Pneumonia, unspecified organism; E87.8 Other disorders of electrolyte and fluid balance, not elsewhere classified; I16.0 Hypertensive urgency; Y95 Nosocomial condition; H53.8 Other visual disturbances; I10 Essential (primary) hypertension; R74.0 Nonspecific elevation of levels of transaminase and lactic acid dehydrogenase [LDH]; R52 Pain, unspecified
CPT/HCPCS: 36415; 71010; 76705; 80048; 80053; 80061; 80076; 83735; 84100; 85025; 87040; 94640; 94664; 96374; 96375; J0456; J1100; J1956; J2270; J2405; J2765; J2920; J7030; J7512